=== PATIENT | male | born 1965 | race Native Hawaiian/Other Pacific Islander ===

== ENCOUNTER 2016-11-01 20:40 | Emergency (ER) | payer BC ==
[2016-11-01 20:50] VITALS: BP 161/91; PULSE 64; RESP 18; TEMP 98.7; O2SAT 98
[2016-11-01] MEDS ORDERED: Naproxen 550 mg Tab PO STA (21:04)
--- NOTE | 2016-11-01 21:07 | ED PDOC ---
Arrival/HPI - General Chief Complaint: Finger,Hand,&Wrist Time Seen by Provider: 11/01/16 20:51 Historian: Patient - History of Present Illness Narrative History of Present Illness (Text): 11/01/16 20:57 A 50 year old male, with no significant past medical history, presents to the emergency department complaining of b/l hand pain since waking up this morning. Patient reports pain has been recurrent since last year. Symptom last occurred in July. Patient currently takes no medications for pain and is requesting to take Naproxen. PMD: Dr. Matthews Time/Duration: Other (this morning) Symptom Onset: Sudden Symptom Course: Unchanged Past Medical History - Provider Review Nursing Documentation Reviewed: Yes - Infectious Disease Hx of Infectious Diseases: None - Cardiac Hx Cardiac Disorders: No - Pulmonary Hx Respiratory Disorders: No - Neurological Hx Neurological Disorder: No - HEENT Hx Blind: No - Renal Hx Renal Cancer: No - Endocrine/Metabolic Hx Hyperthyroidism: No - Hematological/Oncological Hx Hepatitis C: No - Integumentary Hx Psoriasis: No - Musculoskeletal/Rheumatological Hx Musculoskeletal Disorders: Yes Hx Fractures: No Other/Comment: tendonitis in b/l hands - Gastrointestinal Hx Colitis: No - Genitourinary/Gynecological Hx Incontinence: No - Psychiatric Hx Substance Use: No - Surgical History Hx Section: No - Anesthesia Hx Anesthesia: No Family/Social History - Physician Review Nursing Documentation Reviewed: Yes Family/Social History: Other (mother had arthritis) Smoking Status: Never Smoked Hx Alcohol Use: Yes Frequency of alcohol use: Socially Hx Substance Use: No Allergies/Home Meds Allergies/Adverse Reactions: Allergies No Known Allergies Allergy (Verified 11/01/16 20:48) Home Medications: Home Meds Medication Instructions Recorded Confirmed Loratadine [Claritin] 10 mg PO DAILY 11/01/16 11/01/16 Review of Systems - Review of Systems Constitutional: absent: Fevers Respiratory: absent: SOB, Cough Cardiovascular: absent: Chest Pain Gastrointestinal: absent: Abdominal Pain, Nausea, Vomiting Physical Exam Vital Signs Temp Pulse Resp BP Pulse Ox 11/01/16 20:48 98.7 F 64 18 161/91 H 98 Appearance: Positive for: Well-Appearing Pain Distress: None Mental Status: Positive for: Alert and Oriented X 3 - Systems Exam Head: Present: Atraumatic Pupils: Present: PERRL Mouth: Present: Moist Mucous Membranes Neck: Present: Normal Range of Motion Respiratory/Chest: Present: Clear to Auscultation. No: Respiratory Distress, Accessory Muscle Use Cardiovascular: Present: Regular Rate and Rhythm Upper Extremity: Present: Normal ROM, Capillary Refill < 2s. No: Swelling (no joint swelling), Erythema Neurological: Present: GCS=15, Motor Func Grossly Intact, Normal Sensory Function, Other (no focal deficits) Skin: Present: Warm, Dry Psychiatric: Present: Alert, Oriented x 3 Medical Decision Making ED Course and Treatment: 11/01/16 21:09 Patient indicates pain is over PIP joints of fingers (b/l). 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 Suspect arthritis. Patient recommended to follow up with PCP. - Medication Orders Current Medication Orders: Discontinued Medications Naproxen (Anaprox Ds) 550 mg PO STAT STA Stop: 11/01/16 21:05 Last Admin: 11/01/16 21:19 Dose: 550 mg - Scribe Statement The provider has reviewed the documentation as recorded by the Mady Becerra Provider Scribe Attestation: All medical record entries made by the Lyssaibjovanna were at my direction and personally dictated by me. I have reviewed the chart and agree that the record accurately reflects my personal performance of the history, physical exam, medical decision making, and the department course for this patient. I have also personally directed, reviewed, and agree with the discharge instructions and disposition. Disposition/Present on Arrival - Present on Arrival Any Indicators Present on Arrival: No History of DVT/PE: No History of Uncontrolled Diabetes: No Urinary Catheter: No History of Decub. Ulcer: No History Surgical Site Infection Following: None - Disposition Have Diagnosis and Disposition been Completed?: Yes Diagnosis: Bilateral hand pain Disposition: HOME/ ROUTINE Disposition Time: 21:26 Condition: GOOD Discharge Instructions (ExitCare): Osteoarthritis (ED) Additional Instructions: Please follow up with your doctor. Return to the ER for any worsening symptoms or for any other concerns. Prescriptions: Naproxen [Naprosyn] 500 mg PO Q12H PRN #10 tablet PRN Reason: Pain, Moderate (4-7) Referrals: Alonso Chavez MD [Medical Doctor] - Follow up with primary Forms: [employer] (Swazi)
== END 2016-11-01 21:23 | disposition home or self-care (01) ==
LOC: ED 20:40
DX: M79.642 Pain in left hand (principal); M79.641 Pain in right hand

== ENCOUNTER 2017-01-09 22:17 | Emergency (ER) | payer BC ==
[2017-01-09 22:30] VITALS: BMI 27.3
[2017-01-09 22:32] VITALS: RESP 18; TEMP 98.1; O2SAT 98
--- NOTE | 2017-01-10 01:10 | ED PDOC ---
Arrival/HPI - General Chief Complaint: Cough, Cold, Congestion Time Seen by Provider: 01/09/17 22:25 Historian: Patient - History of Present Illness Narrative History of Present Illness (Text): 01/10/17 22:10 51 year old male, whose past medical history includes questionable asthma, presents to the Emergency department complaining of a cough for the past 2 weeks associated with a sore throat that began today. Patient said his voice is slightly hoarse and is concerned about that. Patient denies ever smoking. Patient reports cough improving and denies any fevers, chills, chest pain, shortness of breath, abdominal pain, nausea, vomiting, diarrhea, back pain, neck pain, urinary/bowel changes, headache, dizziness, or any other complaint. PMD: Dr. Chavez Time/Duration: Other (2 weeks ) Symptom Onset: Gradual Symptom Course: Improving Activities at Onset: Light Context: Home Past Medical History - Provider Review Nursing Documentation Reviewed: Yes - Travel History Have you recently traveled outside [place] w/in the past 3 mons?: No - Infectious Disease Hx of Infectious Diseases: None - Cardiac Hx Cardiac Disorders: No - Pulmonary Hx Respiratory Disorders: No - Neurological Hx Neurological Disorder: No - HEENT Hx Blind: No - Renal Hx Renal Cancer: No - Endocrine/Metabolic Hx Hyperthyroidism: No - Hematological/Oncological Hx Hepatitis C: No - Integumentary Hx Psoriasis: No - Musculoskeletal/Rheumatological Hx Musculoskeletal Disorders: Yes Hx Fractures: No Other/Comment: tendonitis in b/l hands - Gastrointestinal Hx Colitis: No - Genitourinary/Gynecological Hx Incontinence: No - Psychiatric Hx Substance Use: No - Surgical History Hx Section: No - Anesthesia Hx Anesthesia: No Family/Social History - Physician Review Nursing Documentation Reviewed: Yes Family/Social History: No Known Family HX Smoking Status: Never Smoked Hx Alcohol Use: Yes Hx Substance Use: No Allergies/Home Meds Allergies/Adverse Reactions: Allergies No Known Allergies Allergy (Verified 11/01/16 20:48) Review of Systems - Physician Review All systems were reviewed & negative as marked: Yes - Review of Systems Constitutional: absent: Fevers, Other (Chills) ENT: Sore Throat Respiratory: Cough. absent: SOB Cardiovascular: absent: Chest Pain Gastrointestinal: absent: Abdominal Pain, Diarrhea, Nausea, Vomiting Genitourinary Male: absent: Dysuria, Frequency, Hematuria Musculoskeletal: absent: Back Pain, Neck Pain Neurological: absent: Headache, Dizziness Physical Exam Vital Signs Reviewed: Yes Vital Signs Temp Pulse Resp BP Pulse Ox 01/10/17 01:33 65 18 151/84 H 98 01/09/17 22:32 98.1 F 91 H 18 138/97 H 98 Temperature: Afebrile Blood Pressure: Hypertensive Pulse: Regular Respiratory Rate: Normal Appearance: Positive for: Well-Appearing, Non-Toxic, Comfortable Pain Distress: None Mental Status: Positive for: Alert and Oriented X 3 - Systems Exam Head: Present: Atraumatic, Normocephalic Pupils: Present: PERRL Extroacular Muscles: Present: EOMI Conjunctiva: Present: Normal Mouth: Present: Moist Mucous Membranes Pharnyx: No: ERYTHEMA, Strider Neck: Present: Normal Range of Motion Respiratory/Chest: Present: Clear to Auscultation, Good Air Exchange, Decreased Breath Sounds. No: Respiratory Distress, Accessory Muscle Use, Wheezes Cardiovascular: Present: Regular Rate and Rhythm, Normal S1, S2. No: Murmurs Medical Decision Making ED Course and Treatment: 01/10/17 22:10 Impression: 51 year old male presents complaining of cough that began 2 weeks ago and sore throat that began today. Questionable history of Asthma. Plan: -- CXR 2 views -- Zithromax -- PredniSONE Tab -- Soft Neck tissue X-ray -- Reassess and disposition Progress Notes: 01/10/17 01:27 CXR and soft tissue neck nml will treat for bronchtis, likely throat irritated due to cough. - RAD Interpretation Radiology Orders: 01/09/17 23:15 CHEST TWO VIEWS (PA/LAT) [RAD] Stat 01/09/17 23:16 NECK SOFT TISSUE [RAD] Stat - Medication Orders Current Medication Orders: Discontinued Medications Azithromycin (Zithromax) 500 mg PO STAT STA PRN Reason: Protocol Stop: 01/09/17 23:18 Last Admin: 01/09/17 23:36 Dose: 500 mg Prednisone (Prednisone Tab) 60 mg PO STAT ONE Stop: 01/09/17 23:19 Last Admin: 01/09/17 23:36 Dose: 60 mg - Scribe Statement The provider has reviewed the documentation as recorded by the Mady Bear Provider Scribe Attestation: All medical record entries made by the Mady were at my direction and personally dictated by me. I have reviewed the chart and agree that the record accurately reflects my personal performance of the history, physical exam, medical decision making, and the department course for this patient. I have also personally directed, reviewed, and agree with the discharge instructions and disposition. Disposition/Present on Arrival - Present on Arrival Any Indicators Present on Arrival: No History of DVT/PE: No History of Uncontrolled Diabetes: No Urinary Catheter: No History of Decub. Ulcer: No History Surgical Site Infection Following: None - Disposition Have Diagnosis and Disposition been Completed?: Yes Diagnosis: Asthmatic bronchitis, Throat discomfort Disposition: HOME/ ROUTINE Disposition Time: 23:00 Patient Plan: Discharge Condition: IMPROVED Discharge Instructions (ExitCare): Acute Bronchitis (ED) Additional Instructions: you throat discomfort is likely due to your persistent cough. use cepacol throat lozenges for comfort Prescriptions: Albuterol HFA [Ventolin HFA 90 mcg/actuation (8 g)] 2 puff IH [id number] #1 puff Azithromycin [Zithromax] 250 mg PO DAILY #4 tab predniSONE [predniSONE Tab] 40 mg PO DAILY #8 tab Referrals: Alonso Chavez MD [Primary Care Provider] - Follow up with primary Forms: [employer] ([place])
[2017-01-10 01:34] VITALS: BP 151/84; PULSE 65
--- NOTE | 2017-01-10 08:35 | RAD ---
HISTORY: cough COMPARISON: None available. TECHNIQUE: Chest PA and lateral FINDINGS: LUNGS: No focal consolidation. Please note that chest x-ray has limited sensitivity for the detection of pulmonary masses. PLEURA: No significant pleural effusion identified. No definite pneumothorax . CARDIOVASCULAR: Heart size appears within normal limits. Mild aortic ectasia. OSSEOUS STRUCTURES: Degenerative changes of the spine. VISUALIZED UPPER ABDOMEN: Unremarkable. OTHER FINDINGS: None. IMPRESSION: No focal consolidation, significant pleural effusion, or definite pneumothorax identified.
== END 2017-01-10 01:34 | disposition home or self-care (01) ==
LOC: ED 22:17
DX: J45.909 Unspecified asthma, uncomplicated (principal); R07.0 Pain in throat

== ENCOUNTER 2018-06-20 15:36 | Emergency (ER) | payer OTHER, BC ==
[2018-06-20 15:36] VITALS: BMI 27.3
[2018-06-20] MEDS ORDERED: TDAP Vaccine 0.5 mL Syr IM ONE (16:12)
--- NOTE | 2018-06-20 16:22 | ED PDOC ---
Arrival/HPI - General Chief Complaint: Bite Time Seen by Provider: 06/20/18 15:44 Historian: Patient - History of Present Illness Narrative History of Present Illness (Text): 06/20/18 16:28 52 year old M with no significant pmh presents for evalution of a dog bite 3 days ago. 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 Patient wants to know if a rabies shot is necessary. He does not know if his tetanus shot is UTD. His PMD recently prescribed augmentin for possible infection. He denies any pain. Patient denies any fevers, chills, headache, dizziness, chest pain, shortness of breath, dyspnea on exertion, cough, diaphoresis, abdominal pain, nausea, vomiting, diarrhea, back pain, neck pain, or any other complaint. Time/Duration: < week Symptom Onset: Sudden Symptom Course: Unchanged Activities at Onset: Light Past Medical History - Provider Review Nursing Documentation Reviewed: Yes - Infectious Disease Hx of Infectious Diseases: None - Cardiac Hx Cardiac Disorders: No - Pulmonary Hx Respiratory Disorders: No - Neurological Hx Neurological Disorder: No - HEENT Hx Blind: No - Renal Hx Renal Cancer: No - Endocrine/Metabolic Hx Hyperthyroidism: No - Hematological/Oncological Hx Hepatitis C: No - Integumentary Hx Psoriasis: No - Musculoskeletal/Rheumatological Hx Musculoskeletal Disorders: Yes Hx Fractures: No Other/Comment: tendonitis in b/l hands - Gastrointestinal Hx Colitis: No - Genitourinary/Gynecological Hx Incontinence: No - Psychiatric Hx Substance Use: No - Surgical History Hx Section: No - Anesthesia Hx Anesthesia: No Family/Social History - Physician Review Nursing Documentation Reviewed: Yes Family/Social History: Unknown Family HX Smoking Status: Never Smoked Hx Alcohol Use: Yes Hx Substance Use: No Allergies/Home Meds Allergies/Adverse Reactions: Allergies No Known Allergies Allergy (Verified 06/20/18 16:07) Home Medications: Home Meds Medication Instructions Recorded Confirmed No Known Home Med 06/20/18 06/20/18 Review of Systems - Physician Review All systems were reviewed & negative as marked: Yes - Review of Systems Constitutional: Normal. absent: Fevers Eyes: Normal ENT: Normal Respiratory: Normal. absent: SOB, Cough, Wheezing Cardiovascular: Normal Gastrointestinal: Normal. absent: Abdominal Pain, Diarrhea, Nausea, Vomiting Genitourinary Male: Normal. absent: Dysuria Musculoskeletal: Normal Skin: Other (small puncture wound on lower right leg) Neurological: Normal Endocrine: Normal Hemo/Lymphatic: Normal Psychiatric: Normal Physical Exam - Physical Exam Narrative Physical Exam (Text): 06/20/18 16:36 Gen: VS reviewed, alert, well developed, well nourished, nontoxic, mild distress. ENT: normal pharynx. Eye: EOMI, PERRL. Neck: no JVD, supple, no adenopathy. Ext: no edema. small puncture wounds on posterior lower right leg, no active bleeding, no drainage, small surrounding erythema Skin: good color, no rash, no cyanosis. Psych: responds appropriately to questions, normal affect. Neuro: oriented x 3, CN2-12 intact grossly, motor intact, sensation intact. 06/22/18 11:36 Vital Signs Temp Pulse Resp BP Pulse Ox 06/20/18 16:04 98.4 F 98 H 18 164/91 H 98 Medical Decision Making ED Course and Treatment: 06/20/18 16:12 52 year old M seen for dog bite, low risk for rabies as the animal is domesticated and can be quarantined, patient understands and agreeable to forego pep, will update tetanus, patient already taking and will finish augmentin. Impression: Plan: -- TDAP Vaccine -- Reassess and disposition Prior Visits: Notes and results from previous visits were reviewed. Progress Notes: - Scribe Statement The provider has reviewed the documentation as recorded by the Mady Vaughn All medical record entries made by the Lyssaibjovanna were at my direction and personally dictated by me. I have reviewed the chart and agree that the record accurately reflects my personal performance of the history, physical exam, medical decision making, and the department course for this patient. I have also personally directed, reviewed, and agree with the discharge instructions and disposition. Disposition/Present on Arrival - Present on Arrival Any Indicators Present on Arrival: No History of DVT/PE: No History of Uncontrolled Diabetes: No Urinary Catheter: No History of Decub. Ulcer: No History Surgical Site Infection Following: None - Disposition Have Diagnosis and Disposition been Completed?: Yes Diagnosis: Dog bite Disposition: HOME/ ROUTINE Disposition Time: 16:22 Patient Plan: Discharge Condition: STABLE Discharge Instructions (ExitCare): Animal Bites (DC) Additional Instructions: return for any problems or concerns especially red streaks extending up the leg, increased redness or swelling around the wound. your blood pressure is elevated today at 164/91 - follow up with your doctor to have your blood pressure rechecked. Forms: [employer] (Citizen Of [place])
[2018-06-20 16:28] VITALS: BP 164/91; PULSE 98; RESP 18; TEMP 98.4; O2SAT 98
== END 2018-06-20 16:44 | disposition home or self-care (01) ==
LOC: ED 15:36
DX: S81.831A Puncture wound without foreign body, right lower leg, initial encounter (principal); W54.0XXA Bitten by dog, initial encounter; Y92.89 Other specified places as the place of occurrence of the external cause; Y99.0 Civilian activity done for income or pay; Z23 Encounter for immunization